=== PATIENT | male | born 1965 | race Caucasian/White ===

== ENCOUNTER → 2019-06-25 | Day surgery (SDC) | payer OTHER ==
[2019-06-18 13:29] VITALS: BMI 32.8
[~2019-06-25] MED LIST: ALPRAZolam 0.25 MG TAB PO PRN; ALPRAZolam 0.5 MG TAB PO PRN; ASPIRIN 325 MG TAB PO STA; ATORVASTATIN 20 MG TAB PO SCH; ATORVASTATIN 80 MG TAB PO STA; BENZOCAINE SPRAY 1 CAN MUCOUS MEM ONE; HEPARIN SODIUM 1,000 UN/ML (10ML VL) IV ONE; HEPARIN SODIUM 1,000 UN/ML (10ML VL) ONE; IOPAMIDOL-370 100ML BTL INJ ONE; IOPAMIDOL-370 50ML BTL INJ ONE; IV FLUID CONTINUATION 1,000 ML IV ONE; LIDOCAINE 1% INJ 10MG/ML (20 ML MDV) ONE; LIDOCAINE 1% INJ 10MG/ML (20 ML MDV) SQ ONE; MIDAZOLAM (PF) 2 MG/2 ML VIAL IVP ONE; NITROGLYCERIN SL TABS 0.4 MG TAB SUBLINGUAL PRN; RX INFO: IV CONTRAST WAS GIVEN 1 EACH MISC MISCELLANE PRN; SODIUM CHLORIDE 0.9% 1,000 ML IV ONE; SODIUM CHLORIDE 0.9% 1,000 ML IV SCH; SODIUM CHLORIDE 0.9% 1,000 ML in EMPTY BAG 1 BAG IV ONE; VERAPAMIL 2.5 MG/ML 2 ML AMP ONE; VERAPAMIL SYRINGE (5 MG/10 ML) IV ONE; fentaNYL (PF) 50 MCG/ML 2 ML AMP IVP ONE; fentaNYL (PF) 50 MCG/ML 2 ML AMP ONE
[2019-06-25 06:58] VITALS: TEMP 97.7
[2019-06-25 08:07] VITALS: RESP 18
--- NOTE | 2019-06-25 08:07 | ECHOT ---
TRANSESOPHAGEAL ECHOCARDIOGRAM INDICATION: Evaluation of mitral valve procedure. After explaining the procedure to the patient, its risks and the complications, his blood pressure, heart rate, O2 saturation was monitored. The throat was sprayed with Cetacaine. He received 3 mg intravenous Versed and 50 mcg intravenous fentanyl. The probe was introduced into the esophagus without difficulty, images were obtained. Following that, the probe was removed. There was no immediate complication. Left atrial size is dilated. Left atrial appendage is normal, left ventricular size is normal. The ejection fraction is estimated at 50% to 55%. The mitral valve revealed thickening of the mitral valve leaflets with prior leaflets hypokinesis and moderate mitral regurgitation, central. The tricuspid valve is normal. Pulmonic valve is normal. The aortic valve is normal, descending thoracic aorta is normal. Contrast bubble study revealed no evidence shunting across the interatrial septum. Doppler pulse wave and color Doppler obtained and revealed a moderate mitral regurgitation with mild tricuspid regurgitation. There was evidence of patent foramen ovale with [id number] shunting with no reversal show with contrast bubble study. CONCLUSION: 1. Dilated left atrium with normal appearance of left atrial appendage. 2. Normal left ventricular size with ejection fraction 50% to 55%. 3. 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 4. Mild tricuspid regurgitation. 5. Patent foramen ovale with [id number] shunting. 6. No pericardial effusion. 7. Normal appearance of the descending thoracic aorta. 8. No shunting across the interatrial septum. MMODL / IJN: [id number] /
[2019-06-25 09:01] LABS: O2 Sat Blood Gas 73.4 %
[2019-06-25 09:03] LABS: O2 Sat Blood Gas 75.5 %
[2019-06-25 09:05] LABS: O2 Sat Blood Gas 95.5 %
--- NOTE | 2019-06-25 10:16 | CC ---
CARDIAC CATHETERIZATION REPORT Mr. Dubois is a 54-year-old male with known history of hyperlipidemia, family history of premature coronary artery disease, prior history of smoking, who presented with symptoms of progressive dyspnea, fatigue, chest pain. His echocardiogram revealed mitral valve prolapse with mildly impaired left ventricular systolic function. Because of his persistent symptoms, recommendation was made regarding cardiac catheterization. The procedure as well as the risks and complications were discussed with the patient who is in full understanding and agreement. PROCEDURE: Patient was brought to freezer laboratory technician in a fasting semi-sedated state after receiving fentanyl and Benadryl and achieving moderate conscious sedated state. Using Xylocaine anesthesia and Seldinger technique, a 6-Cymraes sheath was introduced in the right radial artery. Subsequently, using a guidewire exchange technique, the intravenous catheter in the right brachial area was exchanged to a 6-Cymraes sheath. Following that, right heart catheterization was performed with [place]-Dede catheter. Multiple pressure and samples were obtained. Cardiac output by thermodilution was calculated. Following that, selective right and left coronary angiography was performed using 5- Cymraes 3.5 bend right Luzma and 6-Cymraes Ever catheter. Multiple views of the coronary artery including hemiaxial views were obtained. Following that a 5-Cymraes tight pigtail catheter was introduced in the left ventricle and a 30-degree LOVE view of the left ventricle was obtained. Following that catheter and sheath were removed. Hemostasis was obtained with deployment of a TR band on the radial artery and compression of the brachial area. Of note, the patient received 5000 units of intravenous heparin as well as intra-arterial verapamil. FINDINGS: HEMODYNAMICS: Right atrial saturation 73%, pulmonary artery saturation 75%, arterial saturation 95%. Cardiac output by thermodilution 7.8 L/minutes and by Raf, 8.1 L/minute. Pulmonary artery systolic pressure of 30 with a diastolic of 15 with a mean of 21 mmHg. Pulmonary capillary wedge pressure: A-wave of 10, V-wave of 12 with a mean of 10 mmHg. Right ventricular systolic pressure of 30 with an end-diastolic of 4 mmHg. Right atrial A-wave of 10, V-wave 10 with a mean of 10 mmHg. Left ventricular end-diastolic pressure of 8 mmHg. There was no gradient across the aortic valve. CORONARIES: LEFT MAIN : This is a short size vessel, large in caliber bifurcating in the left circumflex, left anterior descending artery. Left main coronary artery has no evidence of high-grade stenosis. LEFT ANTERIOR DESCENDING ARTERY: This is a large-sized vessel reaching toward the apex, giving rise to a diagonal branch of moderate caliber. The left anterior descending artery as well as branches have no evidence of obstructive coronary artery disease. LEFT CIRCUMFLEX: This is a nondominant vessel giving rise to obtuse marginal branch of large caliber. The left circumflex as well as branches have no evidence of obstructive coronary artery disease. RIGHT CORONARY ARTERY: This is a large dominant vessel bifurcating in PDA and posterolateral segment and branches. The right coronary artery as well as branches have no evidence of obstructive coronary artery disease. LEFT VENTRICULOGRAM: Left ventriculogram was performed in 30-degree LOVE view and revealed mild global hypokinesis. The estimated ejection fraction is 45% to 50%. There was evidence of mitral valve prolapse and 2+ mitral regurgitation. CONCLUSION: 1. Normal coronary arteries. 2. Mildly impaired left ventricular systolic function with 2+ mitral regurgitation. RECOMMENDATION: In view of finding anatomy, I recommend continue medical therapy with aggressive coronary risk modifications that have been initiated. Those findings and recommendation were discussed with the patient and his family and they are in full understanding and agreement. Duration of the procedure is 53 minutes. MMODL / IJN: [id number] /
[2019-06-25 14:28] VITALS: PULSE 76
[2019-06-25 14:32] VITALS: BP 133/79
== END | disposition home or self-care (01) ==
LOC: CATHCVL 05:52
PROVIDERS: ATTEND Internal Medicine Interventional Cardiology
DX: I08.1 Rheumatic disorders of both mitral and tricuspid valves (principal); Q21.1 Atrial septal defect; E78.2 Mixed hyperlipidemia; E78.00 Pure hypercholesterolemia, unspecified; G47.33 Obstructive sleep apnea (adult) (pediatric); Z87.891 Personal history of nicotine dependence; Z79.82 Long term (current) use of aspirin; Z82.49 Family history of ischemic heart disease and other diseases of the circulatory system; Z79.899 Other long term (current) drug therapy
CPT/HCPCS: 93312; 93320; 93325; 93460; 85018; 82810; C1769 ×2; C1751; J2001; J3010; J1644; Q9967 ×2; J2250